=== PATIENT | female | born 1990 | race Two or more races ===

== ENCOUNTER 2020-10-01 11:40 | Emergency (ER) | payer SELFPAY ==
[~2020-10-01] VITALS: Ht 170.2 cm; Wt 85.4 kg
[2020-10-01 12:01] VITALS: BP 140/87
== END 2020-10-01 12:55 | disposition home or self-care (01) ==
LOC: ED 12:30
DX: S93.622A Sprain of tarsometatarsal ligament of left foot, initial encounter (principal); X58.XXXA Exposure to other specified factors, initial encounter; Y92.89 Other specified places as the place of occurrence of the external cause; Y93.39 Activity, other involving climbing, rappelling and jumping off; Y99.0 Civilian activity done for income or pay
CPT/HCPCS: 99283